=== PATIENT | female | born 1970 | race Caucasian/White ===

== ENCOUNTER 2017-11-06 09:26 | Day surgery (SDC) | payer MEDICAID ==
[~2017-11-06] VITALS: Ht 165.1 cm; Wt 133.8 kg
[2017-11-06 10:31] LABS: BASOPHILS % 0.5 % (0.0-2.0); EOSINOPHILS % 3.4 % (0.0-5.0); HEMATOCRIT. 29.4 % (36.0-48.0); HEMOGLOBIN. 9.6 g/dL (12.0-16.0); LYMPHOCYTES % 17.9 % (20.0-50.0); MEAN CORPUSCULAR HEMOGLOBIN 27.7 pg (28.0-32.0); MEAN CORPUSCULAR VOLUME 84.7 fL (81.0-99.0); MEAN PLATELET VOLUME 10.4 fl (7.4-10.4); MONOCYTES % 13.9 % (2.0-8.0); NEUTROPHILS % 64.3 % (40.0-76.0); PLATELET 61 x1000/uL (130-400); RED BLOOD CELL COUNT 3.48 mill/uL (4.2-5.4); RED CELL DISTRIBUTION WIDTH 18.5 % (11.6-14.6)
[2017-11-06 10:31] LABS: UCG SCREEN NEGATIVE
[2017-11-06 10:34] LABS: INR 1.3; PARTIAL THROMBOPLASTIN TIME 28.4 sec (23.4-31.0); PROTHROMBIN TIME 13.6 sec (9.4-11.6)
[2017-11-06 10:47] LABS: CHLORIDE 110 mEq/L (98-107)
[2017-11-06] MEDS ORDERED: SIMETHICONE 40 MG/0.6 ML 30ML ONE (12:27)
[2017-11-06] MEDS ORDERED: PROPOFOL 200MG/20ML VIAL IV ONE (12:36)
[2017-11-06] MEDS ORDERED: LEVO75TA7 PO (12:43)
[2017-11-06] MEDS ORDERED: PROP80CA2 PO (12:43)
[2017-11-06] MEDS ORDERED: FERR-71 PO (12:43)
[2017-11-06] MEDS ORDERED: SPIR50TA26 PO (12:43)
[2017-11-06] MEDS ORDERED: FURO20TA4 PO (12:43)
[2017-11-06] MEDS ORDERED: PROPOFOL 10MG/ML 100ML 100 ML IV ONE (12:52)
== END 2017-11-06 16:25 | disposition home or self-care (01) ==
LOC: OR 09:26
PROVIDERS: ATTEND Internal Medicine Gastroenterology
DX: I85.00 Esophageal varices without bleeding (principal); K76.6 Portal hypertension; K29.50 Unspecified chronic gastritis without bleeding; K31.89 Other diseases of stomach and duodenum; E66.9 Obesity, unspecified; K74.69 Other cirrhosis of liver; E03.8 Other specified hypothyroidism; I10 Essential (primary) hypertension; D64.89 Other specified anemias; F10.10 Alcohol abuse, uncomplicated; Z79.82 Long term (current) use of aspirin; Z79.899 Other long term (current) drug therapy
CPT/HCPCS: 36415; 43239; 43244; 80048; 81025; 85025; 85610; 85730; 88305; 88312; 88313; J2704

== ENCOUNTER 2017-12-18 09:28 | Day surgery (SDC) | payer MEDICAID ==
[~2017-12-18] VITALS: Ht 162.6 cm; Wt 128.8 kg
[~2017-12-18 09:28] MED LIST: FERR-71 PO; FURO20TA4 PO; LEVO75TA7 PO; PROP80CA2 PO; SPIR50TA5 PO
[2017-12-18] MEDS ORDERED: LACTATED RINGERS 1,000 ML IV SCH (10:30)
[2017-12-18 10:58] LABS: UCG SCREEN NEGATIVE
[2017-12-18 11:00] LABS: CHLORIDE 112 mEq/L (98-107)
[2017-12-18 11:02] LABS: INR 1.4; PARTIAL THROMBOPLASTIN TIME 30.1 sec (23.4-31.0); PROTHROMBIN TIME 14.2 sec (9.4-11.6)
[2017-12-18] MEDS ORDERED: SUCR1TAB PO (11:52)
[2017-12-18] MEDS ORDERED: OMEP40CA34 PO (11:52)
[2017-12-18] MEDS ORDERED: LEVO100T9 PO (11:52)
[2017-12-18] MEDS ORDERED: LIDOCAINE HCL/PF 1% 10 MG/ML 5ML VIAL ONE (11:53)
[2017-12-18] MEDS ORDERED: PROPOFOL 200MG/20ML VIAL IV ONE ×2 (11:53→12:13)
[2017-12-18] MEDS ORDERED: MIDAZOLAM HCL 5 MG/5 ML VIAL ONE (11:53)
[2017-12-18] MEDS ORDERED: ONDANSETRON HCL 4MG/2ML VIAL IV PRN (12:30)
[2017-12-18] MEDS ORDERED: HYDROMORPHONE HCL/PF 2MG/ML CPJ IV PRN (12:30)
[2017-12-18] MEDS ORDERED: SODIUM CHLORIDE 0.9% 1,000 ML IV ONE (13:03)
[2017-12-18] MEDS ORDERED: IBUPROFEN 600MG TABLET PO NR (13:05)
== END 2017-12-18 14:30 | disposition home or self-care (01) ==
LOC: OR 09:28
PROVIDERS: ATTEND Internal Medicine Gastroenterology
DX: I85.00 Esophageal varices without bleeding (principal); K76.6 Portal hypertension; K31.89 Other diseases of stomach and duodenum; K74.60 Unspecified cirrhosis of liver; I10 Essential (primary) hypertension; E78.5 Hyperlipidemia, unspecified; E03.9 Hypothyroidism, unspecified; Z88.8 Allergy status to other drugs, medicaments and biological substances; Z79.899 Other long term (current) drug therapy; Z98.890 Other specified postprocedural states
CPT/HCPCS: 36415; 43244; 80048; 81025; 85610; 85730; J2250; J3490; J7120; J2704

== ENCOUNTER 2018-02-19 08:56 | Day surgery (SDC) | payer MEDICAID ==
[~2018-02-19] VITALS: Ht 162.6 cm; Wt 133.8 kg
[~2018-02-19 08:56] MED LIST changes: +LEVO100T9 PO; -LEVO75TA7 PO; +OMEP40CA34 PO; -SPIR50TA5 PO; +SUCR1TAB PO
[2018-02-19] MEDS ORDERED: LACTATED RINGERS 1,000 ML IV SCH (10:00)
[2018-02-19 10:01] LABS: UCG SCREEN NEGATIVE
[2018-02-19] MEDS ORDERED: PROPOFOL 200MG/20ML VIAL IV ONE ×2 (10:53→11:43)
[2018-02-19] MEDS ORDERED: SIMETHICONE 40 MG/0.6 ML 30ML ONE (11:29)
[2018-02-19] MEDS ORDERED: FENTANYL CITRATE/PF 50MCG/ML 2ML VIAL ONE (11:30)
[2018-02-19] MEDS ORDERED: FURO40TA5 PO (11:37)
[2018-02-19] MEDS ORDERED: LIDOCAINE HCL/PF 1% 10 MG/ML 5ML VIAL ONE (11:48)
[2018-02-19] MEDS ORDERED: ONDANSETRON HCL 4MG/2ML VIAL IV PRN (12:15)
== END 2018-02-19 13:00 | disposition home or self-care (01) ==
LOC: OR 08:56
PROVIDERS: ATTEND Internal Medicine Gastroenterology
DX: I85.00 Esophageal varices without bleeding (principal); K74.69 Other cirrhosis of liver; K76.6 Portal hypertension; K31.89 Other diseases of stomach and duodenum; E03.9 Hypothyroidism, unspecified; E66.9 Obesity, unspecified; E78.5 Hyperlipidemia, unspecified; D64.9 Anemia, unspecified; Z98.890 Other specified postprocedural states; Z79.899 Other long term (current) drug therapy; Z88.8 Allergy status to other drugs, medicaments and biological substances
CPT/HCPCS: 43244; 81025; J3010; J3490; J7120; J2704

== ENCOUNTER 2018-04-02 09:32 | Day surgery (SDC) | payer MEDICAID ==
[~2018-04-02] VITALS: Ht 160 cm; Wt 132.0 kg
[~2018-04-02 09:32] MED LIST changes: +FURO40TA5 PO
[2018-04-02] MEDS ORDERED: LACTATED RINGERS 1,000 ML IV SCH (10:00)
[2018-04-02 10:31] LABS: UCG SCREEN NEGATIVE
[2018-04-02] MEDS ORDERED: SIMETHICONE 40 MG/0.6 ML 30ML ONE (11:27)
[2018-04-02] MEDS ORDERED: LIDOCAINE HCL/PF 1% 10 MG/ML 5ML VIAL ONE (11:27)
[2018-04-02] MEDS ORDERED: EPHEDRINE SULFATE 50MG/ML VIAL ONE (11:27)
[2018-04-02] MEDS ORDERED: PROPOFOL 200MG/20ML VIAL IV ONE (11:27)
== END 2018-04-02 13:05 | disposition home or self-care (01) ==
LOC: OR 09:32
PROVIDERS: ATTEND Internal Medicine Gastroenterology
DX: I85.00 Esophageal varices without bleeding (principal); K74.60 Unspecified cirrhosis of liver; K76.6 Portal hypertension; K31.89 Other diseases of stomach and duodenum; E66.9 Obesity, unspecified; E03.9 Hypothyroidism, unspecified
CPT/HCPCS: 43244; 81025; J3490; J7120; J2704

== ENCOUNTER 2018-05-28 12:20 | Day surgery (SDC) | payer MEDICAID ==
[~2018-05-28] VITALS: Ht 162.6 cm; Wt 133.8 kg
[2018-05-28] MEDS ORDERED: LACTATED RINGERS 1,000 ML IV SCH (13:20)
[2018-05-28 13:30] LABS: UCG SCREEN NEGATIVE
[2018-05-28] MEDS ORDERED: SIMETHICONE 40 MG/0.6 ML 30ML ONE (14:29)
[2018-05-28] MEDS ORDERED: PROPOFOL 200MG/20ML VIAL IV ONE (15:05)
== END 2018-05-28 16:00 | disposition home or self-care (01) ==
LOC: OR 12:20
PROVIDERS: ATTEND Internal Medicine Gastroenterology
DX: I85.00 Esophageal varices without bleeding (principal); K76.6 Portal hypertension; K31.89 Other diseases of stomach and duodenum; E03.9 Hypothyroidism, unspecified; E66.9 Obesity, unspecified; K74.60 Unspecified cirrhosis of liver; Z79.899 Other long term (current) drug therapy; Z98.890 Other specified postprocedural states
CPT/HCPCS: 81025; 93005; J2704